=== PATIENT | male | born 1985 | race Caucasian/White ===

== ENCOUNTER 2016-10-13 13:20 | Emergency (ER) | payer OTHER ==
--- NOTE | 2016-10-13 14:47 | ED CLINICAL REPORT ---
Clinical Report - Physicians/Mid Levels [facility] [address] [place] [address] 10/13/2016 13:23 Patient: NINFA AUGUST Time Seen: 13:46; initial patient contact, initial documentation, patient care assumed. Arrived- By private vehicle. Historian- patient and spouse. HISTORY OF PRESENT ILLNESS Chief Complaint: SORE THROAT. This started about 4 - 5 days and is still present. It was abrupt in onset and has been constant. Pain described as severe. The patient has had a sore throat. No mouth sores, nasal discharge or congestion or ear pain. (white spots on throat, daughter sick with ear infection, wants him to have ivf, pt stating his fevers are not going away, but didn't take anything for fever, only taking dayquil and nyquil, spouse reporting pt was having hard time getting out of bed). Similar symptoms previously: None. Recent medical care: Not recently seen/assessed. REVIEW OF SYSTEMS The patient has had fever with chills and sweating and a nonproductive cough. No difficulty breathing, chest pain, diarrhea, abdominal pain or vomiting. He has had a severe, pressure-like global headache. All systems otherwise negative, except as recorded above. PAST HISTORY Negative. SOCIAL HISTORY Former smoker. No alcohol use or drug use. No recent travel. Is a local resident. He lives with spouse. FAMILY HISTORY Negative. ADDITIONAL NOTES The nursing notes have been reviewed with agreement regarding the chief complaint, HPI, ROS, PMH and patient medications and allergies. PHYSICAL EXAM Vital Signs: 10/13/2016 13:35 BP: 107/87. HR: 100. RR: 20. O2 saturation: 99%. Temp: 102.7 F. Have been reviewed as abnormal and appear to be correct. Blood pressure normal. Heart rate normal. Respiratory rate normal. Febrile. Oxygen saturation normal. Appearance: Alert. No acute distress. Head: Normal external inspection. Eyes: Pupils equal, round and reactive to light. Conjunctivae and eyelids normal. ENT: Ears normal. Nose normal. Pharynx abnormal. Severe generalized pharyngeal erythema with right tonsillar swelling and exudate and left tonsillar swelling and exudate (+1 hypertrophy). No pharyngeal vesicles or ulcerations. No right tonsillar abscess, right peritonsillitis, left tonsillar abscess or left peritonsillitis. Lips normal. Gums normal. No trismus present. Uvula midline. Neck: Lymphadenopathy. Normal inspection. Mild right anterior neck and mild left anterior neck lymphadenopathy present. Trachea midline. Thyroid normal. Neck supple. CVS: Normal heart rate and rhythm. Heart sounds normal. Pulses normal. Respiratory: No respiratory distress. Breath sounds normal. Chest nontender. Abdomen: Soft and nontender. No organomegaly. Skin: Normal skin color. No rash. Normal skin turgor. Extremities: Extremities exhibit normal ROM. Extremities nontender. Neuro: Oriented X 3. No motor deficit. No sensory deficit. LABS, X-RAYS, AND EKG Laboratory Tests: CBC w Diff: (KEITH: 10/13/2016 12:45) ( [facility] 10/13/2016 14:09) Final results Test Result Flag Units (Reference) WHITE BLOOD COUNT 12.8 H K/uL (4.5-11.5) RED BLOOD COUNT 5.10 M/uL (4.50-5.90) HEMOGLOBIN 14.6 gm/dL (13.5-17.5) HEMATOCRIT 42.2 % (41.0-53.0) MEAN CELL VOLUME 83 fL (80-100) MEAN CORPUSCULAR HGB 29 pg (26-34) MEAN CORPUSCULAR HGB CONC 35 g/dL (31-37) RED CELL DISTRIBUTION WIDTH 12.9 % (11.6-14.8) PLATELET COUNT 95 L K/uL (150-400) NEUTROPHIL % 84.4 H % (50-75) LYMPH % 7.2 L % (25-40) MONO % 8.4 % (3-14) EOSINOPHIL % 0 % (0-4) BASOPHIL % 0 % (0-2) CMP: (KEITH: 10/13/2016 12:45) ( [facility] 10/13/2016 14:15) Final results Test Result Flag Units (Reference) GLUCOSE 103 mg/dL (70-110) BUN 9 mg/dL (7-18) CREATININE 1.0 mg/dL (0.6-1.3) Estimated GFR >60 mL/min Estimated GFR- >60 mL/min Note: Persistent reduction over 3 months in eGFR<60 mL/min/1.73 m2 defines CKD. Patients with eGFR values>=60 mL/min/1.73 m2 may also have CKD if evidence ofpersistent proteinuria. Additional information may be foundat www.kidney.org. SODIUM 139 mmol/L (136-145) POTASSIUM 3.9 mmol/L (3.5-5.1) CHLORIDE 101 mmol/L (98-107) CARBON DIOXIDE 30 mmol/L (21-32) CALCIUM 9.1 mg/dL (8.5-10.1) TOTAL PROTEIN 7.9 g/dL (6.4-8.2) ALBUMIN 4.0 g/dL (3.3-5.0) BILIRUBIN, TOTAL 0.9 mg/dL (0.0-1.0) ALKALINE PHOSPHATASE 124 H U/L (46-116) AST (SGOT) 35 U/L (15-37) ALT (SGPT) 84 H U/L (12-78) Culture, Strep Screen: (KEITH: 10/13/2016 14:01) ( [facility] 10/13/2016 14:57) Final results Test Result Flag Units (Reference) RAPID STREP SCREEN - THROAT DATE: 10/13/16 NEGATIVE SCREEN: RAPID STREP SCREEN NEGATIVE; CONFIRMATION TO FOLLOW Rapid Influenza Screen: (KEITH: 10/13/2016 14:00) ( [facility] 10/13/2016 14:25) Final results SPECIMEN DESCRIPTION: NARES Test Result Flag Units (Reference) RAPID INFLUENZA SCREEN DATE: 10/13/16 INFLUENZA A: NEGATIVE SCREEN FOR INFLUENZA A INFLUENZA B: NEGATIVE SCREEN FOR INFLUENZA B . PROGRESS AND PROCEDURES Patient and spouse counseled in person regarding the patient's stable condition, test results and diagnosis. 14:44. Differential Diagnosis: Other possible considerations: flu, viral illness, uri, pharyngitis, tonsilitis, mono. Above considerations are based on history, physical exam, reassessment and laboratory data. Differential diagnosis was discussed with patient and patient's spouse. Disposition: Discharged home in good and improved condition (14:47). Condition: good and stable. CLINICAL IMPRESSION 10/13/2016 15:05 BP: 105/46. HR: 87. RR: 18. O2 saturation: 98%. Temp: 101.5 F. Vital Signs: have been reviewed as abnormal and appear to be correct. Blood pressure normal. Heart rate normal. Respiratory rate normal. Febrile. Oxygen saturation normal. Acute streptococcal pharyngitis Acute fever INSTRUCTIONS Alternate Tylenol (Acetaminophen) and Motrin (Ibuprofen) for fever, temperature greater than 101 degrees orally. Take according to label instructions. Do not work today, for two days. Drink plenty of fluids for the next 24 hours until better. Warnings: GENERAL WARNINGS: Return or contact your physician immediately if your condition worsens or changes unexpectedly, if not improving as expected, or if other problems arise. Specifically return if problem worsens. Prescription Medications: Amoxicillin 500 mg tablets: Take 1 orally every 8 hours for 10 days. Dispense thirty (30). No refills. Motrin 600 mg tablets: take 1 tablet orally every 6 hours as needed for pain or fever. Dispense twenty (20). No refill. Follow-up: Follow up with your doctor in about three days even if well. Call for an appointment. Summary of care provided to patient. Understanding of the discharge instructions verbalized by patient. (Electronically signed by Fabiana Rodriguez A.R.N.P. 10/13/2016 15:14)
--- NOTE | 2016-10-13 14:48 | ED NURSING NOTES ---
Clinical Report - Nurses [facility] [address] [place] [address] 10/13/2016 13:23 Patient: NINFA AUGUST TRIAGE Triage time 13:35 Oct 13 2016. Acuity: LEVEL 3. Chief Complaint: FEVER, CHILLS, SWEATS and "NOT FEELING WELL". FLORENCE COMA SCORE: Gurley Coma Scale: 15- eyes open spontaneously (4); best verbal response- oriented x 4 (5); best motor response- obeys commands (6). --13:46 Elli Noriega R.N. 13:35 10/13/16. BP: 107/87. HR: 100. RR: 20. O2 saturation: 99%. Temp: 102.7 F. Pain level now 10/10. --13:46 Elli Noriega R.N. Weight: 68 kg stated. Height/Length: 69 inches Per Patient. BMI: 22.2. --13:43 Elli Noriega R.N. Medications None. --13:44 Elli Noriega R.N. Allergies No Known Drug Allergy. --13:44 Elli Noriega R.N. History Arrived by private vehicle. Historian: patient and family. Accompanied by family. ( States has had high fevers for three days and lifestyle director states he's acting funny and has been falling out of bed. Patient states throat is sore and there is a white lump on back of throat.). He has had a sore throat and a cough. He has had contact with a sick individual. (daughter had ear infection). PAST MEDICAL HX: Immunizations: up-to-date. SOCIAL HX: Former smoker, end date 01/2016. No alcohol use or drug use. No recent travel. He has had contact with a sick child. No infectious disease exposure. SELF HARM ASSESSMENT: A self harm assessment was performed. The patient answered "no" to the question "Have you recently felt down, depressed, or hopeless?" and "Do you have thoughts of harming or killing yourself?". FALL RISK ASSESSMENT: Fall risk assessment completed. No fall risk identified. NUTRITIONAL RISK ASSESSMENT: The nutritional risk assessment revealed no deficiencies. FUNCTIONAL ASSESSMENT: Functional assessment: no impairments noted. LEARNING NEEDS ASSESSMENT: The learning needs assessment revealed no barriers. ABUSE ASSESSMENT: Abuse assessment: (yes) The patient was asked "Do you feel safe in your home?". SKIN INTEGRITY ASSESSMENT: Skin integrity risk assessment completed. No skin integrity risk identified. --13:46 Elli Noriega R.N. ADDITIONAL SURGERIES: no known surgeries. Interventions ID band on patient. --13:46 Elli Noriega R.N. PHYSICAL ASSESSMENT Ambulatory to room. GENERAL / NEURO / PSYCH: Alert. Oriented X 4. Appears in distress. ( Severe headache mid head.). HEENT: Pupils equal, round and reactive to light. Mucous membranes are pink. RESPIRATORY: Respirations not labored. Chest nontender. Breath sounds within normal limits. CVS: Normal sinus rhythm noted. Capillary refill less than 2 seconds. Pulses within normal limits. --13:47 Elli Noriega R.N. NURSING PROGRESS NOTES The initial plan of care for this patient includes an assessment with efforts to address patient positioning, appropriate ambient lighting and comfortable environmental temperature. Pulse oximeter and NIBP monitor placed on patient. Reassurance given. Call light placed in reach. Side rails up x 1. Bed placed in lowest position. Brakes of bed on. --13:47 Elli Noriega R.N. 14:05 10/13/2016 Site #1 started via IV in the left antecubital space with an 20g angiocath; one attempt. Blood drawn: rainbow set. Labeled in the presence of the patient and sent to the lab. Saline lock flushed with 10 mL saline. --14:15 Elli Noriega R.N. 14:05 10/13/2016 Started bag #1 1000 mL IV Fluids IV NS (Saline); at 1000 mL/hr over 1 hour(s) via site #1 via dial-a-flow. Allergies verified and confirmed 5 rights. IV patency established. IV site checked: no pain, redness, or swelling. IV flushed thoroughly pre- and post-medication administration. --14:15 Elli Noriega R.N. 14:54 10/13/2016 Toradol IVP 30 mg given over 2 minute(s) via site #1. Allergies verified and confirmed 5 rights. IV patency established. IV site checked: no pain, redness, or swelling. IV flushed thoroughly pre- and post-medication administration. --15:04 Elli Noriega R.N. 14:54 10/13/2016 IV Fluids IV NS Discontinued: bag #1 infused upon discharge. Total amount infused: 1000 mL. IV patency established. IV site checked: no pain, redness, or swelling. IV flushed thoroughly. --15:04 Elli Noriega R.N. DISPOSITION / DISCHARGE 14:55 10/13/2016 Site #1 removed upon discharge. Catheter intact. Pressure dressing applied. --15:06 Elli Noriega R.N. Departure time: 15:00 Oct 13 2016. Condition at departure: improved. No learning barriers present. Discharge instructions provided and reviewed with the patient and spouse. Reviewed warnings. Reviewed medication(s). Treatments reviewed. Reviewed referrals. Patient verbalized understanding. Written instructions provided in Ethiopian. The patient was discharged home and accompanied by spouse. He left the Emergency Department ambulatory and via private vehicle. Spouse driving. --15:06 Elli Noriega R.N. 15:05 10/13/16. BP: 105/46. HR: 87. RR: 18. O2 saturation: 98%. Temp: 101.5 F. Pain level now 7/10. --15:06 Elli Noriega R.N. Locked/Released at 10/13/2016 19:20 by Elli Noriega R.N.
--- NOTE | 2016-10-13 14:48 | ED ORDER SUMMARY ---
..... Patient: NINFA AUGUST OrderSheet [facility] VisitID: [id number] [place] [address] 30y, M Registration Date/Time: 10/13/2016 ORDER SHEET Weight: 68.0 kg (stated) Allergies: No Known Drug Allergy GENERAL ORDERS: Rapid Influenza Screen (Nasal Pharyngeal) (nares) Urgent (13:54 10/13/2016 HBivens A.R.N.P.) (Ack 13:58 KHoerner) (14:12 LWhalen R.N.) CBC w Diff Urgent (13:54 10/13/2016 HBivens A.R.N.P.) (Ack 13:58 KHoerner) (14:12 LWhalen R.N.) CMP Urgent (13:54 10/13/2016 HBivens A.R.N.P.) (Ack 13:58 KHoerner) (14:12 LWhalen R.N.) Culture, Throat Urgent (13:54 10/13/2016 HBivens A.R.N.P.) (Ack 13:58 KHoerner) (14:12 LWhalen R.N.) Culture, Strep Screen Urgent (14:37 10/13/2016 HBivens A.R.N.P.) (Ack 14:39 KHoerner) (Cancelled: Other14:45 KHoerner) Culture, Strep Screen Urgent (14:46 10/13/2016 KHoerner verbal order read back to HBivens A.R.N.P.) (Ack 14:46 KHoerner) (14:46 KHoerner) MEDICATION ORDERS: IV FLUIDS: IV NS : initial bolus 1000 mL (1000 mL/hr), then none - (NOW) (13:54 10/13/2016 HBivens A.R.N.P.) (14:15 LWhalen R.N.) IV Saline Lock (13:54 10/13/2016 HBivens A.R.N.P.) (Ack 14:15 LWhalen R.N.) Toradol IV 30 mg (NOW) (14:51 10/13/2016 HBivens A.R.N.PJoaquin) (15:04 Shree Rushing) ORDER SHEET NOTES: [Electronically signed by Fabiana RodriguezRJoaquinNJoaquinPJoaquin (15:14 10/13/2016)] [Electronically signed by Elli Noriega R.N. (19:20 10/13/2016)] [Electronically locked/signed by Elli Noriega R.N. (19:20 10/13/2016)]
--- NOTE | 2016-10-13 14:48 | ED ORDER SUMMARY ---
..... Patient: NINFA AUGUST OrderSheet [facility] VisitID: [id number] [place] [address] 30y, M Registration Date/Time: 10/13/2016 ORDER SHEET Weight: 68.0 kg (stated) Allergies: No Known Drug Allergy GENERAL ORDERS: Rapid Influenza Screen (Nasal Pharyngeal) (nares) Urgent (13:54 10/13/2016 HBivens A.R.N.P.) (Ack 13:58 KHoerner) (14:12 LWhalen R.N.) CBC w Diff Urgent (13:54 10/13/2016 HBivens A.R.N.P.) (Ack 13:58 KHoerner) (14:12 LWhalen R.N.) CMP Urgent (13:54 10/13/2016 HBivens A.R.N.P.) (Ack 13:58 KHoerner) (14:12 LWhalen R.N.) Culture, Throat Urgent (13:54 10/13/2016 HBivens A.R.N.P.) (Ack 13:58 KHoerner) (14:12 LWhalen R.N.) Culture, Strep Screen Urgent (14:37 10/13/2016 HBivens A.R.N.P.) (Ack 14:39 KHoerner) (Cancelled: Other14:45 KHoerner) Culture, Strep Screen Urgent (14:46 10/13/2016 KHoerner verbal order read back to HBivens A.R.N.P.) (Ack 14:46 KHoerner) (14:46 KHoerner) MEDICATION ORDERS: IV FLUIDS: IV NS : initial bolus 1000 mL (1000 mL/hr), then none - (NOW) (13:54 10/13/2016 HBivens A.R.N.P.) (14:15 LWhalen R.N.) IV Saline Lock (13:54 10/13/2016 HBivens A.R.N.P.) (Ack 14:15 LWhalen R.N.) Toradol IV 30 mg (NOW) (14:51 10/13/2016 HBivens A.R.N.PJoaquin) (15:04 Shree Rushing) ORDER SHEET NOTES: [Electronically signed by Fabiana RodriguezRJoaquinNJoaquinPJoaquin (15:14 10/13/2016)] [Electronically signed by Elli Noriega R.N. (19:20 10/13/2016)] [Electronically locked/signed by Elli Noriega R.N. (19:20 10/13/2016)]
--- NOTE | 2016-10-13 19:20 | ED MAR SUMMARY ---
..... Medication Administration Record [facility] [address] [place] [address] Patient: NINFA AUGUST Visit ID: [id number] 30y, M Weight: 68.0 kg Height/Length: 69 in BMI: 22.2 ALLERGIES: No Known Drug Allergy Start 14:05 10/13/2016 Elli Noriega R.N., Stop 14:54 10/13/2016 Elli Noriega R.N. Medication Administered: IV NS (SALINE), Dose: IV Fluids over 1 hour(s), Rate: 1000 mL/hr, Dispensed: 1000 mL bag, Site: #1 left AC. Medication Ordered: IV NS : initial bolus 1000 mL (1000 mL/hr), then none - (NOW). Given 14:54 10/13/2016 Elli Noriega R.NJoaquin Medication Administered: TORADOL [IVP], Dose: 30 mg IVP over 2 minute(s), Site: #1 left AC. Medication Ordered: Toradol IV 30 mg (NOW).
--- NOTE | 2016-10-13 19:20 | ED MAR SUMMARY ---
..... Medication Administration Record [facility] [address] [place] [address] Patient: NINFA AUGUST Visit ID: [id number] 30y, M Weight: 68.0 kg Height/Length: 69 in BMI: 22.2 ALLERGIES: No Known Drug Allergy Start 14:05 10/13/2016 Elli Noriega R.N., Stop 14:54 10/13/2016 Elli Noriega R.N. Medication Administered: IV NS (SALINE), Dose: IV Fluids over 1 hour(s), Rate: 1000 mL/hr, Dispensed: 1000 mL bag, Site: #1 left AC. Medication Ordered: IV NS : initial bolus 1000 mL (1000 mL/hr), then none - (NOW). Given 14:54 10/13/2016 Elli Noriega R.NJoaquin Medication Administered: TORADOL [IVP], Dose: 30 mg IVP over 2 minute(s), Site: #1 left AC. Medication Ordered: Toradol IV 30 mg (NOW).
--- NOTE | 2016-10-13 19:20 | ED MED RECONCILIATION SUMMARY ---
Patient: NINFA AUGUST Medication Reconciliation Report [facility] VisitID: [id number] [place] [address] 30y, M Registration Date/Time: 10/13/2016 Weight: 68.0 kg Height/Length: 69 in. BMI: 22.2 ALLERGIES: No Known Drug Allergy The patient's Home Medications are listed below: NONE. The source(s) of the original Home Medication information: Not obtained. The following Medications were given to the patient in the Emergency Department: IV NS IV Fluids bolus 0, then 1000 mL/hr, administered: 10/13/2016 2:05:00 PM Toradol [IVP] IVP 30 mg, administered: 10/13/2016 2:54:00 PM The following Medications were prescribed to the patient: Amoxicillin 500 mg tablets: Take 1 orally every 8 hours for 10 days. Dispense thirty (30). No refills. -- Fabiana Rodriguez A.RJoaquinNJoaquinPJoaquin Motrin 600 mg tablets: take 1 tablet orally every 6 hours as needed for pain or fever. Dispense twenty (20). No refill. -- Fabiana Rodriguez A.R.N.P.
--- NOTE | 2016-10-13 19:20 | ED DISCHARGE INSTRUCTIONS ---
Patient: NINFA AUGUST General Instructions [facility] VisitID: [id number] [place] [address] 30y, M Registration Date/Time: 10/13/2016 10/13/2016 15:05 BP: 105/46. HR: 87. RR: 18. O2 saturation: 98%. Temp: 101.5 F. Vital Signs: have been reviewed as abnormal and appear to be correct. Blood pressure normal. Heart rate normal. Respiratory rate normal. Febrile. Oxygen saturation normal. Acute streptococcal pharyngitis Acute fever INSTRUCTIONS Alternate Tylenol (Acetaminophen) and Motrin (Ibuprofen) for fever, temperature greater than 101 degrees orally. Take according to label instructions. Do not work today, for two days. Drink plenty of fluids for the next 24 hours until better. Warnings: GENERAL WARNINGS: Return or contact your physician immediately if your condition worsens or changes unexpectedly, if not improving as expected, or if other problems arise. Specifically return if problem worsens. Prescription Medications: Amoxicillin 500 mg tablets: Take 1 orally every 8 hours for 10 days. Dispense thirty (30). No refills. Motrin 600 mg tablets: take 1 tablet orally every 6 hours as needed for pain or fever. Dispense twenty (20). No refill. Follow-up: Follow up with your doctor in about three days even if well. Call for an appointment. Summary of care provided to patient. Understanding of the discharge instructions verbalized by patient. ADDITIONAL INFORMATION Febrile Illness, Uncertain Cause (Adult) You have a fever, but the cause is not certain. A fever is a natural reaction of the body to an illness such as infections due to a virus or bacteria. In most cases, the temperature itself is not harmful. It actually helps the body fight infections. A fever does not need to be treated unless you feel very uncomfortable. Sometimes a fever can be an early sign of a more serious infection. Therefore, you should watch for the signs listed below. Home Care: If signs and symptoms are severe, rest at home for the first 2-3 days. When you resume activity, don't let yourself get too tired. Stay away from cigarette smoke (yours and other peoples). You may use acetaminophen (Tylenol) or ibuprofen (Motrin, Advil) to control fever or pain, unless another medicine was prescribed. NOTE: If you have chronic liver or kidney disease or ever had a stomach ulcer or GI bleeding, talk with your doctor before using these medicines. (Aspirin should never be used in anyone under 18 years of age who is ill with a fever. It may cause severe liver damage.) Your appetite may be poor, so a light diet is fine. Avoid dehydration by drinking 6-8 glasses of fluid per day (water, sport drinks such as Gatorade, sodas without caffeine, juices, tea, soup). Extra fluid will help loosen secretions in the nose and lungs. Jdvr-paq-lhjevor products will not shorten the duration of the illness but may be helpful for the following symptoms: cough (Robitussin DM); sore throat (Chloraseptic lozenges or spray); nasal and sinus congestion (Actifed or Sudafed). NOTE: Do not use decongestants if you have high blood pressure. Follow Up with your doctor or as advised if you do not start to improve over the next week. Get Prompt Medical Attention if any of the following occur: Cough with lots of colored sputum (mucus) or blood in your sputum Chest pain, shortness of breath, wheezing or difficulty breathing Severe headache, face, neck, throat or ear pain Feeling drowsy or confused Abdominal pain, repeated vomiting or diarrhea Joint pain or a new rash Burning when urinating Fever of 100.4F (38C) oral or higher, not better with fever medication Feeling weak or dizzy Convulsion Taking Your Child's Temperature If your child feels hot, then check the temperature. Under 3 months : Start with a AXILLARY temperature. If it is above 99.0 F (37.2 C), take a RECTAL temperature. 3 months to 4 years : Measure a RECTAL temperature, or an EAR temperature. Over 4 years : Measure an ORAL temperature. Rectal Temperature is the most accurate. Ear temperature is not as accurate as a rectal or oral temperature, but is more convenient and can be used in the 3 month to 4 year old. Other methods such as plastic strips , forehead devices , and pacifier thermometers are even less accurate and they are not recommended. If you do not know how to use a thermometer, ask your nurse or pharmacist. Oral Method: Normal: 98.6 F (37.0 C). Range of normal: Up to 99.0 F (37.2 C). Recommended Age: Use this method for children older than 4 or 5 years of age, only if cooperative. 1) Wait at least 20 minutes after drinking or eating before taking an oral temperature. 2) Place the tip of a the thermometer under the child's tongue. 3) Have child close lips gently, without biting on the thermometer. 4) Keep under the tongue until the thermometer beeps. 5) Remove thermometer and read the temperature in the display. 6) Clean the thermometer with alcohol, or soap and water after each use. Axillary Method (UNDER THE ARM): Normal: 97.6 F (36.6 C) Range of Normal: Up to 98.6 F (37.0 C) Recommended Age: Use this method for children under 4 years of age or any uncooperative child. 1) Make sure armpit is dry and the child does not have clothing between arm and chest. 2) Place the tip of the thermometer high up in the armpit. 4) Hold the child's arm snug against their body with the thermometer in place until it beeps. 5) Remove thermometer and read the temperature in the display. 6) Clean the thermometer with alcohol, or soap and water after each use. Rectal Method: Normal: 99.6 F (37.6 C). Range of Normal: Up to 100.4 F (38.0 C). Recommended age: Use this method for children under 4 years of age or any uncooperative child. 1) Lubricate the tip of a rectal thermometer with a lubricant such as Vaseline jelly or K-Y jelly. 2) Lay your child face down across your lap, or on his/her side with knees bent toward the chest. Spread buttocks so that the anus can be easily seen. 3) Hold the thermometer between your thumb and index finger with the edge of your hand resting on the buttocks. Slowly and gently insert thermometer into the anus about one inch. The tip should slide in easily. Do not force it since they may cause injury. 4) Do not let go of the thermometer! Hold it carefully in place until it beeps. 5) Remove thermometer and read the temperature in the display. 6) Clean the thermometer with alcohol, or soap and water after each use. When To Seek Help Call your doctor or return here if you have an infant younger than 3 months with a temperature of 100.4 F (38.0 C) or an older child with a fever higher than 104.0 F (40.0 C). Pharyngitis: Strep [Presumed] Your illness has the signs of a strep throat infection. Strep throat is a contagious illness. It is spread by coughing, kissing or by touching others after touching your mouth or nose. Symptoms include throat pain worse with swallowing, aching all over, headache and fever. You will be treated with an antibiotic, which should make you start to feel better within 1-2 days. Home Care: Rest at home and drink plenty of fluids to avoid dehydration. No school or work for the first two days on antibiotics. You will not be contagious after this time, and if you are feeling better, you can return to school or work. Take your antibiotics for a full 10 days, even if you feel better after the first few days of treatment. This is very important to prevent complications from the strep infection (such as heart or kidney disease). Children: Use acetaminophen (Tylenol) for fever, fussiness or discomfort. In infants over six months of age, you may use ibuprofen (Children's Motrin) instead of Tylenol. [NOTE: If your child has chronic liver or kidney disease or ever had a stomach ulcer or GI bleeding, talk with your doctor before using these medicines.] (Aspirin should never be used in anyone under 18 years of age who is ill with a fever. It may cause severe liver damage.) Adults: You may use acetaminophen (Tylenol) or ibuprofen (Motrin, Advil) to control pain or fever, unless another medicine was prescribed for this. [NOTE: If you have chronic liver or kidney disease or ever had a stomach ulcer or GI bleeding, talk with your doctor before using these medicines.] Throat lozenges or sprays (Chloraseptic and others) will reduce pain. Gargling with warm salt water will also reduce throat pain. Dissolve 1/2 teaspoon of salt in 1 glass of warm water. This is especially useful just before meals. Follow Up with your doctor or as directed by our staff if you are not improving over the next week. Get Prompt Medical Attention if any of the following occur: Fever over 100.5F (38.0C) oral, or over 101.5F (38.6C) rectal for more than three days New or worsening ear pain, sinus pain or headache Painful lumps in the back of your neck Unable to swallow liquids or open your mouth wide due to throat pain Trouble breathing or noisy breathing Muffled voice New rash Fever Control (Adult) A fever is a natural reaction of the body to an illness. In most cases, the temperature itself is not harmful. It actually helps the body fight infections. A fever does not need to be treated unless you feel very uncomfortable. Home Care If you feel warm, check your temperature. If you feel very uncomfortable and your temperature is at or higher than 100.4F (38C) oral, you may take acetaminophen (Tylenol) every 4 to 6 hours. If you cant take or keep down oral medicine, ask your pharmacist for Tylenol suppositories, which you can get without a prescription. If the fever does not respond to acetaminophen within 1 hour, take ibuprofen (Advil or Motrin). If this works, keep taking the ibuprofen every 6 to 8 hours. Note: If you have chronic liver or kidney disease or ever had a stomach ulcer or GI bleeding, talk with your doctor before using these medications. If either medication alone does not keep the fever down, you may alternate the two medicines every 3 to 4 hours, only if your healthcare provider has instructed you to do so. For example, take Motrin then wait 3 hours, take Tylenol then wait 3 hours, take Motrin, and so on. Follow your healthcare providers instructions exactly. Clothing: Keep clothing light because excess body heat is lost through the skin. The fever will go up if you wear extra layers or wrap in blankets. Fluids: Fever causes the body to lose water through evaporation. Drink plenty of fluids such as water, juice, clear sodas, janel kamilah, or lemonade. Do not use aspirin in anyone under 18 years of age who is ill with a fever. It can cause severe liver damage. Follow Up with your doctor or as advised by our staff if you do not get better after 48 hours. Get Prompt Medical Attention if any of the following occur: Fever does not get better after taking fever medication Fast or difficult breathing Earache, sinus pain, stiff or painful neck, headache, repeated diarrhea or vomiting You feel unusually irritable, drowsy, or confused A rash appears You feel weak or dizzy, or that you might faint Amoxicillin Trihydrate Oral tablet What is this medicine? AMOXICILLIN (a mox i LORENA in) is a penicillin antibiotic. It is used to treat certain kinds of bacterial infections. It will not work for colds, flu, or other viral infections. How should I use this medicine? Take this medicine by mouth with a glass of water. Follow the directions on your prescription label. You may take this medicine with food or on an empty stomach. Take your medicine at regular intervals. Do not take your medicine more often than directed. Take all of your medicine as directed even if you think your are better. Do not skip doses or stop your medicine early. Talk to your swimming pool service technician regarding the use of this medicine in children. While this drug may be prescribed for selected conditions, precautions do apply. What side effects may I notice from receiving this medicine? Side effects that you should report to your doctor or health rn complex care as soon as possible: allergic reactions like skin rash, itching or hives, swelling of the face, lips, or tongue breathing problems dark urine redness, blistering, peeling or loosening of the skin, including inside the mouth seizures severe or watery diarrhea trouble passing urine or change in the amount of urine unusual bleeding or bruising unusually weak or tired yellowing of the eyes or skin Side effects that usually do not require medical attention (report to your doctor or health rn complex care if they continue or are bothersome): dizziness headache stomach upset trouble sleeping What may interact with this medicine? amiloride control pills chloramphenicol macrolides probenecid sulfonamides tetracyclines What if I miss a dose? If you miss a dose, take it as soon as you can. If it is almost time for your next dose, take only that dose. Do not take double or extra doses. Where should I keep my medicine? Keep out of the reach of children. Store between 68 and 77 degrees F (20 and 25 degrees C). Keep bottle closed tightly. Throw away any unused medicine after the expiration date. What should I tell my health care provider before I take this medicine? They need to know if you have any of these conditions: asthma kidney disease an unusual or allergic reaction to amoxicillin, other penicillins, cephalosporin antibiotics, other medicines, foods, dyes, or preservatives or trying to get breast-feeding What should I watch for while using this medicine? Tell your doctor or health rn complex care if your symptoms do not improve in 2 or 3 days. Take all of the doses of your medicine as directed. Do not skip doses or stop your medicine early. If you are diabetic, you may get a false positive result for sugar in your urine with certain brands of urine tests. Check with your doctor. Do not treat diarrhea with [id number]-oxgeddj products. Contact your doctor if you have diarrhea that lasts more than 2 days or if the diarrhea is severe and watery. Ibuprofen Oral tablet What is this medicine? IBUPROFEN (eye BYOO proe fen) is a non-steroidal anti-inflammatory drug (NSAID). It is used for dental pain, fever, headaches or migraines, osteoarthritis, rheumatoid arthritis, or painful monthly periods. It can also relieve minor aches and pains caused by a cold, flu, or sore throat. How should I use this medicine? Take this medicine by mouth with a glass of water. Follow the directions on the prescription label. Take this medicine with food if your stomach gets upset. Try to not lie down for at least 10 minutes after you take the medicine. Take your medicine at regular intervals. Do not take your medicine more often than directed. A special MedGuide will be given to you by the pharmacist with each prescription and refill. Be sure to read this information carefully each time. Talk to your swimming pool service technician regarding the use of this medicine in children. Special care may be needed. What side effects may I notice from receiving this medicine? Side effects that you should report to your doctor or health rn complex care as soon as possible: allergic reactions like skin rash, itching or hives, swelling of the face, lips, or tongue black or bloody stools, blood in the urine or in vomit breathing problems changes in vision chest pain general ill feeling or flu-like symptoms nausea or vomiting redness, blistering, peeling or loosening of the skin, including inside the mouth slurred speech or weakness on one side of the body stomach pain unexplained weight gain or swelling unusually weak or tired yellowing of eyes or skin Side effects that usually do not require medical attention (report to your doctor or health rn complex care if they continue or are bothersome): constipation or diarrhea dizziness gas or heartburn stomach upset What may interact with this medicine? Do not take this medicine with any of the following medications: cidofovir ketorolac methotrexate pemetrexed This medicine may also interact with the following medications: alcohol aspirin diuretics lithium other drugs for inflammation like prednisone warfarin What if I miss a dose? If you miss a dose, take it as soon as you can. If it is almost time for your next dose, take only that dose. Do not take double or extra doses. Where should I keep my medicine? Keep out of the reach of children. Store at room temperature between 15 and 30 degrees C (59 and 86 degrees F). Keep container tightly closed. Throw away any unused medicine after the expiration date. What should I tell my health care provider before I take this medicine? They need to know if you have any of these conditions: asthma cigarette smoker drink more than 3 alcohol containing drinks a day heart disease or circulation problems such as heart failure or leg edema (fluid retention) high blood pressure kidney disease liver disease stomach bleeding or ulcers an unusual or allergic reaction to ibuprofen, aspirin, other NSAIDS, other medicines, foods, dyes, or preservatives or trying to get breast-feeding What should I watch for while using this medicine? Tell your doctor or healthcare professional if your symptoms do not start to get better or if they get worse. This medicine does not prevent heart attack or stroke. In fact, this medicine may increase the chance of a heart attack or stroke. The chance may increase with longer use of this medicine and in people who have heart disease. If you take aspirin to prevent heart attack or stroke, talk with your doctor or health rn complex care. Do not take other medicines that contain aspirin, ibuprofen, or naproxen with this medicine. Side effects such as stomach upset, nausea, or ulcers may be more likely to occur. Many medicines available without a prescription should not be taken with this medicine. This medicine can cause ulcers and bleeding in the stomach and intestines at any time during treatment. Ulcers and bleeding can happen without warning symptoms and can cause . To reduce your risk, do not smoke cigarettes or drink alcohol while you are taking this medicine. You may get drowsy or dizzy. Do not drive, use machinery, or do anything that needs mental alertness until you know how this medicine affects you. Do not stand or sit up quickly, especially if you are an older patient. This reduces the risk of dizzy or fainting spells. This medicine can cause you to bleed more easily. Try to avoid damage to your teeth and gums when you brush or floss your teeth. You have been given the following additional information: Febrile Illness, Uncertain Cause (Adult) Thermometer Use Pharyngitis, Strep (Presumed) Fever Control (Adult) Amoxicillin Trihydrate Oral tablet Ibuprofen Oral tablet Do not work today, for two days. (Electronically signed by Fabiana Rodriguez A.R.N.P. 10/13/2016 15:14)
--- NOTE | 2016-10-13 19:20 | ED MED RECONCILIATION SUMMARY ---
Patient: NINFA AUGUST Medication Reconciliation Report [facility] VisitID: [id number] [place] [address] 30y, M Registration Date/Time: 10/13/2016 Weight: 68.0 kg Height/Length: 69 in. BMI: 22.2 ALLERGIES: No Known Drug Allergy The patient's Home Medications are listed below: NONE. The source(s) of the original Home Medication information: Not obtained. The following Medications were given to the patient in the Emergency Department: IV NS IV Fluids bolus 0, then 1000 mL/hr, administered: 10/13/2016 2:05:00 PM Toradol [IVP] IVP 30 mg, administered: 10/13/2016 2:54:00 PM The following Medications were prescribed to the patient: Amoxicillin 500 mg tablets: Take 1 orally every 8 hours for 10 days. Dispense thirty (30). No refills. -- Fabiana Rodriguez A.RJoaquinNJoaquinPJoaquin Motrin 600 mg tablets: take 1 tablet orally every 6 hours as needed for pain or fever. Dispense twenty (20). No refill. -- Fabiana Rodriguez A.R.N.P.
== END 2016-10-13 15:00 | disposition home or self-care (01) ==
LOC: ED SRH 13:20
DX: J02.0 Streptococcal pharyngitis (principal); R50.9 Fever, unspecified; Z87.891 Personal history of nicotine dependence
CPT/HCPCS: 90100; 90126; 90154; 90159; 90627; 91400; 95059

== ENCOUNTER 2016-10-14 20:50 | Emergency (ER) | payer OTHER ==
--- NOTE | 2016-10-14 22:45 | DIAGNOSTIC IMAGING REPORT ---
PROCEDURE: CT HEAD WITHOUT CONTRAST INDICATION: HEADACHE TECHNIQUE: Axial CT images were acquired through the head. Coronal and sagittal reformations were created. COMPARISON: None. FINDINGS: No intracranial hemorrhage or extraaxial fluid collections. Ventricles are normal in size, shape and position. There is no mass, mass effect or midline shift. The john-white matter differentiation is normal. There is no edema. The calvarium is intact. Minor mucosal thickening in the right sphenoid sinus and left maxillary sinus. Other sinuses and mastoids are normally aerated. The extracranial soft tissues and orbits are normal. IMPRESSION: 1. No CT evidence of acute intracranial process. 2. Findings discussed with Fabiana Rodriguez at [address] scans at this facility use dose modulation, iterative reconstruction, and/or weight-based dosing when appropriate to reduce radiation dose to as low as reasonably achievable.
--- NOTE | 2016-10-14 23:02 | ED CLINICAL REPORT ---
Clinical Report - Physicians/Mid Levels [facility] [address] [place] [address] 10/14/2016 20:51 Patient: NINFA AUGUST Time Seen: 21:43; initial patient contact, initial documentation, patient care assumed. Arrived- By private vehicle. Historian- patient and spouse. RETURN VISIT: recently seen in this ED by me. Seen now for the same problem as before. HISTORY OF PRESENT ILLNESS Chief Complaint: SORE THROAT. This started about 5 - 6 days ago and is still present. Pain described as severe. The patient has had a sore throat. No mouth sores, nasal discharge or congestion, ear pain or toothache. (pt states the headache won't go away, fever comes and goes, and he doesn't feel any better, taking all the meds as directed). Similar symptoms previously: None. Recent medical care: The patient was seen recently at this facility in the emergency department. ( txed here yesterday by me). REVIEW OF SYSTEMS The patient has had fever. No cough, difficulty breathing, chest pain, diarrhea or abdominal pain. No vomiting. He has had a severe, sharp, throbbing global headache. All systems otherwise negative, except as recorded above. PAST HISTORY Negative. SOCIAL HISTORY Former smoker. No alcohol use or drug use. No recent travel. Is a local resident. He lives with spouse. FAMILY HISTORY Negative. ADDITIONAL NOTES The nursing notes have been reviewed with agreement regarding the chief complaint, HPI, ROS, PMH and patient medications and allergies. PHYSICAL EXAM Vital Signs: 10/14/2016 21:24 BP: 115/71. HR: 87. RR: 16. O2 saturation: 99%. Temp: 102.3 F. Pain level now: 710. Have been reviewed as abnormal and appear to be correct. Blood pressure normal. Heart rate normal. Respiratory rate normal. Febrile. Oxygen saturation normal. Appearance: Alert. No acute distress. Head: Normal external inspection. Eyes: Pupils equal, round and reactive to light. Conjunctivae and eyelids normal. ENT: Ears normal. Nose normal. Pharynx abnormal. Moderate generalized pharyngeal erythema (throat looks better from yesterday's exam). No pharyngeal vesicles or ulcerations. No right tonsillar exudate, right tonsillar abscess, right tonsillar swelling, right peritonsillitis, left tonsillar exudate, left tonsillar abscess, left tonsillar swelling or left peritonsillitis. Lips normal. Gums normal. No trismus present. Uvula midline. Neck: Lymphadenopathy. Normal inspection. Mild right anterior neck and mild left anterior neck lymphadenopathy present. Trachea midline. Thyroid normal. Neck supple. Respiratory: No respiratory distress. Skin: Normal skin color. No rash. Normal skin turgor. Extremities: Extremities exhibit normal ROM. Extremities nontender. Neuro: Oriented X 3. No motor deficit. No sensory deficit. LABS, X-RAYS, AND EKG CT Head: Normal study. No acute disease. (IMPRESSION: 1. No CT evidence of acute intracranial process. 2. Findings discussed with Fabiana Rodriguez at [address] scans at this facility use dose modulation, iterative reconstruction, and/or weight-based dosing when appropriate to reduce radiation dose to as low as reasonably achievable. Electronically Final signed by:Risa Martel MD 10/14/2016 10:45:01 PM). The study was interpreted by the radiologist and discussed with the radiologist. Interpretation time: 22:45. Laboratory Tests: Monoscreen: (KEITH: 10/14/2016 22:30) ( [facility] Final results Test Result Flag Units (Reference) MONOSCREEN NEGATIVE (NEGATIVE) CBC w Diff: (KEITH: 10/14/2016 22:30) ( MsgRcvd 10/14/2016 22:57) Final results Test Result Flag Units (Reference) WHITE BLOOD COUNT 9.7 K/uL (4.5-11.5) RED BLOOD COUNT 4.49 L M/uL (4.50-5.90) HEMOGLOBIN 12.7 L gm/dL (13.5-17.5) HEMATOCRIT 37.6 L % (41.0-53.0) MEAN CELL VOLUME 84 fL (80-100) MEAN CORPUSCULAR HGB 28 pg (26-34) MEAN CORPUSCULAR HGB CONC 34 g/dL (31-37) RED CELL DISTRIBUTION WIDTH 12.8 % (11.6-14.8) PLATELET COUNT 103 L K/uL (150-400) NEUTROPHIL % 72.5 % (50-75) LYMPH % 13.7 L % (25-40) MONO % 13.3 % (3-14) EOSINOPHIL % 0.2 % (0-4) BASOPHIL % 0.3 % (0-2) [id number]: (KEITH: 10/14/2016 22:30) ( MsgRcvd 10/14/2016 23:26) Final results Test Result Flag Units (Reference) PROCALCITONIN <0.5 ng/mL (0-0.5) PCT Concentration: Interpretation : Risk/option for action PCT <=0.5 ng/mL : Systemic : Low risk forinfection(sepsis): progression to severeis not likely. : systemic infection.Local bacterial : CAUTION-PCT levelsinfection is : below 0.5 ng/mL do notpossible. : exclude an infection,because localizedinfections (withoutsystemic signs) may beassociated with suchlow levels. If PCT ismeasured very earlyafter a bacterialchallenge (usually <6hours), these valuesmay still be low. Inthis case PCT shouldbe re-assessed 6-24hours later. PCT >0.5 and : Systemic infection: Moderate risk for<= 2 ng/mL : (sepsis) is : progression to severepossible, but : systemic infection.other conditions : The patient should beare known to : closely monitoredelevate PCT. : both clinically andby re-assessing PCTwithin 6-24 hours. PCT > 2 ng/mL : Systemic infection: High risk for(sepsis) is likely: progression to severeunless other : systemic infection.causes are known. : PCT >= 10 ng/mL : Important systemic: High likelihood ofinflammatory : severe sepsis orresponse, almost : septic shock.exclusively due to:severe bacterial :sepsis or septic :shock. : CMP: (KEITH: 10/14/2016 22:30) ( MsgRcvd 10/14/2016 23:01) Final results Test Result Flag Units (Reference) GLUCOSE 121 H mg/dL (70-110) BUN 6 L mg/dL (7-18) CREATININE 0.8 mg/dL (0.6-1.3) Estimated GFR >60 mL/min Estimated GFR- >60 mL/min Note: Persistent reduction over 3 months in eGFR<60 mL/min/1.73 m2 defines CKD. Patients with eGFR values>=60 mL/min/1.73 m2 may also have CKD if evidence ofpersistent proteinuria. Additional information may be foundat [email or web address].org. SODIUM 140 mmol/L (136-145) POTASSIUM 3.6 mmol/L (3.5-5.1) CHLORIDE 104 mmol/L (98-107) CARBON DIOXIDE 30 mmol/L (21-32) CALCIUM 8.6 mg/dL (8.5-10.1) TOTAL PROTEIN 7.3 g/dL (6.4-8.2) ALBUMIN 3.7 g/dL (3.3-5.0) BILIRUBIN, TOTAL 0.7 mg/dL (0.0-1.0) ALKALINE PHOSPHATASE 139 H U/L (46-116) AST (SGOT) 74 H U/L (15-37) ALT (SGPT) 128 H U/L (12-78) . PROGRESS AND PROCEDURES Course of Care: 22:18 10/14/16. er record from yesterday reviewed wbc 12.8. He complains of headache (- improving). Patient and spouse counseled in person regarding the patient's stable condition, test results and diagnosis. 2250. Differential Diagnosis: I considered migraine, cluster headache, subarachnoid hemorrhage, intracranial bleed, vascular malformation, cerebral aneurysm, vascular dissection, vasculitis, temporal arteritis, bacterial meningitis, viral meningitis, encephalitis, brain abscess, sinusitis, influenza, viral syndrome and analgesic abuse as a possible cause of headache in this patient. This is a partial list of diagnoses considered. (pharyngitis, mono, flu, viral illness). Above considerations are based on history, physical exam, laboratory data and other information. Differential diagnosis was discussed with patient and patient's spouse. Disposition: Discharged home in good and improved condition (23:02). Condition: good and stable. CLINICAL IMPRESSION Acute streptococcal pharyngitis Acute fever Episodic, poorly controlled headache. INSTRUCTIONS Alternate Tylenol (Acetaminophen) and Motrin (Ibuprofen) for fever, temperature greater than 101 degrees. Take according to label instructions. Drink plenty of fluids. (continue with current prescriptions as directed and discussed). Warnings: GENERAL WARNINGS: Return or contact your physician immediately if your condition worsens or changes unexpectedly, if not improving as expected, or if other problems arise. Specifically return if problem worsens. Follow-up: Follow up with your doctor in about three days even if well. Call for an appointment. Summary of care provided to patient and family. Understanding of the discharge instructions verbalized by patient. (Electronically signed by Fabiana Rodriguez A.R.N.P. 10/15/2016 13:20)
--- NOTE | 2016-10-14 23:03 | ED ORDER SUMMARY ---
..... Patient: NINFA AUGUST OrderSheet [facility] VisitID: [id number] [place] [address] 30y, M Registration Date/Time: 10/14/2016 ORDER SHEET Weight: 68.0 kg (stated) Allergies: No Known Drug Allergy GENERAL ORDERS: CT Head wo Cont Urgent (21:48 10/14/2016 HBivens A.R.N.P.) (Ack 21:49 IJurca ER Tech1) (22:21 MCampbell) CBC w Diff Urgent (21:48 10/14/2016 HBivens A.R.N.P.) (Ack 21:49 IJurca ER Tech1) (22:45 RCollier R.N.) CMP Urgent (21:48 10/14/2016 HBivens A.R.N.P.) (Ack 21:49 IJurca ER Tech1) (22:45 RCollier R.N.) Lactate, Serum Urgent (22:20 10/14/2016 HBivens A.R.N.P.) (Ack 22:29 IJurca ER Tech1) (Cancelled: Physician Order23:36 DDavis R.N.) PCT (Procalcitonin) Urgent (22:20 10/14/2016 HBivens A.R.N.P.) (Ack 22:29 IJurca ER Tech1) (22:45 RCollier R.N.) Monoscreen Urgent (23:03 10/14/2016 HBivens A.R.N.P.) (Ack 23:15 IJurca ER Tech1) (23:16 IJurca ER Tech1) MEDICATION ORDERS: Tylenol PO 650 mg (NOW) (21:35 10/14/2016 DDavis R.N. per protocol) (Ack 21:36 DDavis R.N.) (21:39 DDavis R.N.) IV FLUIDS: IV NS : initial bolus 1000 mL (1000 mL/hr), then none - (NOW) (21:47 10/14/2016 HBivens A.R.N.P.) (Ack 21:51 DDavis R.N.) (22:43 RCollier R.N.) Toradol IV 30 mg (NOW) (21:47 10/14/2016 HBivens A.R.N.P.) (Ack 21:51 DDavis R.N.) (22:44 RCollier R.N.) Reglan IV 10 mg (NOW) (21:47 10/14/2016 HBivens A.R.N.P.) (Ack 21:51 DDavis R.N.) (22:45 RCollier R.N.) Benadryl IV 25 mg (NOW) (21:47 10/14/2016 HBivens A.R.N.P.) (Ack 21:51 DDavis R.N.) (22:44 RCollier R.N.) IV Saline Lock (21:48 10/14/2016 HBivens A.R.N.P.) (Ack 21:51 DDavis R.N.) (23:35 DDavis R.N.) ORDER SHEET NOTES: [Electronically signed by Gilbert cMgraw R.N. (23:39 10/14/2016)] [Electronically signed by Fabiana RodriguezR.N.PJoaquin (13:20 10/15/2016)] [Electronically locked/signed by Gilbert Mcgraw R.N. (23:39 10/14/2016)]
--- NOTE | 2016-10-14 23:03 | ED NURSING NOTES ---
Clinical Report - Nurses [facility] [address] [place] [address] 10/14/2016 20:51 Patient: NINFA AUGUST TRIAGE Triage time 21:24. Acuity: LEVEL 3. Chief Complaint: SORE THROAT. 21:30. --21:30 Emily Buck R.N. 21:24 10/14/16. BP: 115/71 taken on the left arm, via an automated monitor, while lying. HR: 87 (regular, normal rate and strong). RR: 16 (regular, unlabored and normal). O2 saturation: 99%. Temp: 102.3 F (oral). Pain level now: 01/18. --21:30 Emily Buck R.N. Weight: 68 kg stated. Height/Length: 69 inches Per Patient. BMI: 22.2. --21:29 Emily Buck R.N. Medications Ibuprofen Oral (Tablet 600 mg) 1 tablet, PRN, fever, last dose 1930. --21:27 Emily Buck R.N. Amoxicillin Oral (Capsule 500 mg) 1 capsule, q8hrs, last dose 1400. --21:28 Emily Buck R.N. Allergies No Known Drug Allergy. --21:26 Emily Buck R.N. History Arrived by private vehicle. Historian: patient. Accompanied by friend. ( pounding headache, fever, nausea,). PAST MEDICAL HX: Immunizations: up-to-date. SOCIAL HX: Never smoker. No alcohol use or drug use. FALL RISK ASSESSMENT: Fall risk assessment completed. No fall risk identified. NUTRITIONAL RISK ASSESSMENT: The nutritional risk assessment revealed no deficiencies. FUNCTIONAL ASSESSMENT: Functional assessment: no impairments noted. LEARNING NEEDS ASSESSMENT: The learning needs assessment revealed no barriers. SKIN INTEGRITY ASSESSMENT: Skin integrity risk assessment completed. No skin integrity risk identified. --21:30 Emily Buck R.N. Interventions ID band on patient. --21:30 Emily Buck R.N. PHYSICAL ASSESSMENT ( Pt states having a generalized headache and fever "for a week" and having decreased appetite.). GENERAL / NEURO / PSYCH: Alert. Oriented X 4. HEENT: Mucous membranes are pink. RESPIRATORY: Respirations not labored. SKIN: Skin is warm and dry. --21:44 Gilbert Mcgraw R.N. Ambulatory to room. --21:45 Gilbert Mcgraw R.N. GENERAL / NEURO / PSYCH: Fátima Coma Scale: 15- eyes open spontaneously (4); best verbal response- oriented x 4 (5); best motor response- obeys commands (6). --21:45 Gilbert Mcgraw R.N. NURSING PROGRESS NOTES 21:39 10/14/2016 Tylenol (Acetaminophen) PO Tablets 650 mg given. Allergies verified and confirmed 5 rights. --21:39 Gilbert Mcgraw R.N. ( Patient resting in bed.). --21:43 Gilbert Mcgraw R.N. Two patient identifiers checked. Call light placed in reach. Side rails up x 1. Bed placed in lowest position. Brakes of bed on. Patient ready for evaluation- chart flagged. Patient waiting for evaluation. --21:43 Gilbert Mcgraw R.N. ( pt refused IV untill after he gets something to eat, states he will pass out if he does not eat first. Provider consulted and sandwich and crackers given to pt. Pt instructed to push call light when he is ready for IV start. Pt verbalizes understanding). --22:25 Mackenzie Abarca R.N. 22:30 10/14/2016 Site #1 started via IV in the left antecubital space with an 20g angiocath, with aseptic technique and good blood return; one attempt. Blood drawn: rainbow set. Labeled in the presence of the patient and sent to the lab. Saline lock flushed with 10 mL saline. --22:42 Mackenzie Abarca R.N. 22:31 10/14/2016 Started bag #1 1000 mL IV Fluids IV NS (Saline); at 1000 mL/hr over 1 hour(s) via site #1. Allergies verified and confirmed 5 rights. IV patency established. IV site checked: no pain, redness, or swelling. IV flushed thoroughly pre- and post-medication administration. --22:43 Mackenzie Abarca R.N. 22:34 10/14/2016 Toradol IVP 30 mg given over 1 minute(s) via site #1. Allergies verified and confirmed 5 rights. IV patency established. IV site checked: no pain, redness, or swelling. IV flushed thoroughly pre- and post-medication administration. IVP given by RN. --22:44 Mackenzie Abarca R.N. 22:35 10/14/2016 Benadryl (DiphenhydrAMINE HCl) IVP 25 mg given over 1 minute(s) via site #1. Allergies verified, confirmed 5 rights and sedative warning given to the patient. IV patency established. IV site checked: no pain, redness, or swelling. IV flushed thoroughly pre- and post-medication administration. IVP given by RN. --22:44 Mackenzie Abarca R.N. 22:37 10/14/2016 Reglan (Metoclopramide HCl) IVP 10 mg given over 2 minute(s) via site #1. Allergies verified and confirmed 5 rights. IV patency established. IV site checked: no pain, redness, or swelling. IV flushed thoroughly pre- and post-medication administration. IVP given by RN. --22:45 Mackenzie Abarca R.N. Patient transported to [place] by stretcher with tech. ([id number]). --22:45 Mackenzie Abarca R.N. Patient returned from CT by stretcher with tech. ([id number]). --22:45 Mackenzie Abarca R.N. 23:31 10/14/2016 IV Fluids IV NS Discontinued: bag #1 infused. Total amount infused: 1000 mL. IV patency established. IV site checked: no pain, redness, or swelling. IV flushed thoroughly. --23:36 Gilbert Mcgraw R.N. 23:35 10/14/2016 IV Saline Lock Drip IV Discontinued: bag #1 upon discharge. IV patency established IV site checked: no pain, redness, or swelling IV flushed thoroughly. --23:35 Gilbert Mcgraw R.N. DISPOSITION / DISCHARGE Departure time: 23:37. Condition at departure: improved and stable. No learning barriers present. Discharge instructions provided and reviewed with rad technologist and the patient. Reviewed warnings. Treatments reviewed. Reviewed referrals. Patient and rad technologist verbalized understanding. Written instructions provided in Uzbek. The patient was discharged home and accompanied by rad technologist. He left the Emergency Department ambulatory and via private vehicle. Senior Planning Analyst driving. ( Patient states "my headache is better, it's gone."). --23:38 Gilbert Mcgraw R.N. 23:36 10/14/16. BP: 114/60. HR: 79. RR: 18. O2 saturation: 95% on room air. Temp: 98.6 F (oral). Pain level now: 0/10. --23:38 Gilbert Mcgraw R.N. Locked/Released at 10/14/2016 23:39 by Gilbert Mcgraw R.N.
--- NOTE | 2016-10-14 23:03 | ED ORDER SUMMARY ---
..... Patient: NINFA AUGUST OrderSheet [facility] VisitID: [id number] [place] [address] 30y, M Registration Date/Time: 10/14/2016 ORDER SHEET Weight: 68.0 kg (stated) Allergies: No Known Drug Allergy GENERAL ORDERS: CT Head wo Cont Urgent (21:48 10/14/2016 HBivens A.R.N.P.) (Ack 21:49 IJurca ER Tech1) (22:21 MCampbell) CBC w Diff Urgent (21:48 10/14/2016 HBivens A.R.N.P.) (Ack 21:49 IJurca ER Tech1) (22:45 RCollier R.N.) CMP Urgent (21:48 10/14/2016 HBivens A.R.N.P.) (Ack 21:49 IJurca ER Tech1) (22:45 RCollier R.N.) Lactate, Serum Urgent (22:20 10/14/2016 HBivens A.R.N.P.) (Ack 22:29 IJurca ER Tech1) (Cancelled: Physician Order23:36 DDavis R.N.) PCT (Procalcitonin) Urgent (22:20 10/14/2016 HBivens A.R.N.P.) (Ack 22:29 IJurca ER Tech1) (22:45 RCollier R.N.) Monoscreen Urgent (23:03 10/14/2016 HBivens A.R.N.P.) (Ack 23:15 IJurca ER Tech1) (23:16 IJurca ER Tech1) MEDICATION ORDERS: Tylenol PO 650 mg (NOW) (21:35 10/14/2016 DDavis R.N. per protocol) (Ack 21:36 DDavis R.N.) (21:39 DDavis R.N.) IV FLUIDS: IV NS : initial bolus 1000 mL (1000 mL/hr), then none - (NOW) (21:47 10/14/2016 HBivens A.R.N.P.) (Ack 21:51 DDavis R.N.) (22:43 RCollier R.N.) Toradol IV 30 mg (NOW) (21:47 10/14/2016 HBivens A.R.N.P.) (Ack 21:51 DDavis R.N.) (22:44 RCollier R.N.) Reglan IV 10 mg (NOW) (21:47 10/14/2016 HBivens A.R.N.P.) (Ack 21:51 DDavis R.N.) (22:45 RCollier R.N.) Benadryl IV 25 mg (NOW) (21:47 10/14/2016 HBivens A.R.N.P.) (Ack 21:51 DDavis R.N.) (22:44 RCollier R.N.) IV Saline Lock (21:48 10/14/2016 HBivens A.R.N.P.) (Ack 21:51 DDavis R.N.) (23:35 DDavis R.N.) ORDER SHEET NOTES: [Electronically signed by Gilbert Mcgraw R.N. (23:39 10/14/2016)] [Electronically signed by Fabiana RodriguezR.N.PJoaquin (13:20 10/15/2016)] [Electronically locked/signed by Gilbert Mcgraw R.N. (23:39 10/14/2016)]
--- NOTE | 2016-10-14 23:03 | ED NURSING NOTES ---
Clinical Report - Nurses [facility] [address] [place] [address] 10/14/2016 20:51 Patient: NINFA AUGUST TRIAGE Triage time 21:24. Acuity: LEVEL 3. Chief Complaint: SORE THROAT. 21:30. --21:30 Emily Buck R.N. 21:24 10/14/16. BP: 115/71 taken on the left arm, via an automated monitor, while lying. HR: 87 (regular, normal rate and strong). RR: 16 (regular, unlabored and normal). O2 saturation: 99%. Temp: 102.3 F (oral). Pain level now: 01/18. --21:30 Emily Buck R.N. Weight: 68 kg stated. Height/Length: 69 inches Per Patient. BMI: 22.2. --21:29 Emily Buck R.N. Medications Ibuprofen Oral (Tablet 600 mg) 1 tablet, PRN, fever, last dose 1930. --21:27 Emily Buck R.N. Amoxicillin Oral (Capsule 500 mg) 1 capsule, q8hrs, last dose 1400. --21:28 Emily Buck R.N. Allergies No Known Drug Allergy. --21:26 Emily Buck R.N. History Arrived by private vehicle. Historian: patient. Accompanied by friend. ( pounding headache, fever, nausea,). PAST MEDICAL HX: Immunizations: up-to-date. SOCIAL HX: Never smoker. No alcohol use or drug use. FALL RISK ASSESSMENT: Fall risk assessment completed. No fall risk identified. NUTRITIONAL RISK ASSESSMENT: The nutritional risk assessment revealed no deficiencies. FUNCTIONAL ASSESSMENT: Functional assessment: no impairments noted. LEARNING NEEDS ASSESSMENT: The learning needs assessment revealed no barriers. SKIN INTEGRITY ASSESSMENT: Skin integrity risk assessment completed. No skin integrity risk identified. --21:30 Emily Buck R.N. Interventions ID band on patient. --21:30 Emily Buck R.N. PHYSICAL ASSESSMENT ( Pt states having a generalized headache and fever "for a week" and having decreased appetite.). GENERAL / NEURO / PSYCH: Alert. Oriented X 4. HEENT: Mucous membranes are pink. RESPIRATORY: Respirations not labored. SKIN: Skin is warm and dry. --21:44 Gilbert Mcgraw R.N. Ambulatory to room. --21:45 Gilbert Mcgraw R.N. GENERAL / NEURO / PSYCH: Fátima Coma Scale: 15- eyes open spontaneously (4); best verbal response- oriented x 4 (5); best motor response- obeys commands (6). --21:45 Gilbert Mcgraw R.N. NURSING PROGRESS NOTES 21:39 10/14/2016 Tylenol (Acetaminophen) PO Tablets 650 mg given. Allergies verified and confirmed 5 rights. --21:39 Gilbert Mcgraw R.N. ( Patient resting in bed.). --21:43 Gilbert Mcgraw R.N. Two patient identifiers checked. Call light placed in reach. Side rails up x 1. Bed placed in lowest position. Brakes of bed on. Patient ready for evaluation- chart flagged. Patient waiting for evaluation. --21:43 Gilbert Mcgraw R.N. ( pt refused IV untill after he gets something to eat, states he will pass out if he does not eat first. Provider consulted and sandwich and crackers given to pt. Pt instructed to push call light when he is ready for IV start. Pt verbalizes understanding). --22:25 Mackenzie Abarca R.N. 22:30 10/14/2016 Site #1 started via IV in the left antecubital space with an 20g angiocath, with aseptic technique and good blood return; one attempt. Blood drawn: rainbow set. Labeled in the presence of the patient and sent to the lab. Saline lock flushed with 10 mL saline. --22:42 Mackenzie Abarca R.N. 22:31 10/14/2016 Started bag #1 1000 mL IV Fluids IV NS (Saline); at 1000 mL/hr over 1 hour(s) via site #1. Allergies verified and confirmed 5 rights. IV patency established. IV site checked: no pain, redness, or swelling. IV flushed thoroughly pre- and post-medication administration. --22:43 Mackenzie Abarca R.N. 22:34 10/14/2016 Toradol IVP 30 mg given over 1 minute(s) via site #1. Allergies verified and confirmed 5 rights. IV patency established. IV site checked: no pain, redness, or swelling. IV flushed thoroughly pre- and post-medication administration. IVP given by RN. --22:44 Mackenzie Abarca R.N. 22:35 10/14/2016 Benadryl (DiphenhydrAMINE HCl) IVP 25 mg given over 1 minute(s) via site #1. Allergies verified, confirmed 5 rights and sedative warning given to the patient. IV patency established. IV site checked: no pain, redness, or swelling. IV flushed thoroughly pre- and post-medication administration. IVP given by RN. --22:44 Mackenzie Abarca R.N. 22:37 10/14/2016 Reglan (Metoclopramide HCl) IVP 10 mg given over 2 minute(s) via site #1. Allergies verified and confirmed 5 rights. IV patency established. IV site checked: no pain, redness, or swelling. IV flushed thoroughly pre- and post-medication administration. IVP given by RN. --22:45 Mackenzie Abarca R.N. Patient transported to [place] by stretcher with tech. ([id number]). --22:45 Mackenzie Abarca R.N. Patient returned from CT by stretcher with tech. ([id number]). --22:45 Mackenzie Abarca R.N. 23:31 10/14/2016 IV Fluids IV NS Discontinued: bag #1 infused. Total amount infused: 1000 mL. IV patency established. IV site checked: no pain, redness, or swelling. IV flushed thoroughly. --23:36 Gilbert Mcgraw R.N. 23:35 10/14/2016 IV Saline Lock Drip IV Discontinued: bag #1 upon discharge. IV patency established IV site checked: no pain, redness, or swelling IV flushed thoroughly. --23:35 Gilbert Mcgraw R.N. DISPOSITION / DISCHARGE Departure time: 23:37. Condition at departure: improved and stable. No learning barriers present. Discharge instructions provided and reviewed with student worker and the patient. Reviewed warnings. Treatments reviewed. Reviewed referrals. Patient and student worker verbalized understanding. Written instructions provided in Turkish. The patient was discharged home and accompanied by student worker. He left the Emergency Department ambulatory and via private vehicle. Fondant Cooker driving. ( Patient states "my headache is better, it's gone."). --23:38 Gilbert Mcgraw R.N. 23:36 10/14/16. BP: 114/60. HR: 79. RR: 18. O2 saturation: 95% on room air. Temp: 98.6 F (oral). Pain level now: 0/10. --23:38 Gilbert Mcgraw R.N. Locked/Released at 10/14/2016 23:39 by Gilbert Mcgraw R.N.
--- NOTE | 2016-10-15 13:20 | ED DISCHARGE INSTRUCTIONS ---
Patient: NINFA AUGUST General Instructions [facility] VisitID: [id number] [place] [address] 30y, M Registration Date/Time: 10/14/2016 Acute streptococcal pharyngitis Acute fever Episodic, poorly controlled headache. INSTRUCTIONS Alternate Tylenol (Acetaminophen) and Motrin (Ibuprofen) for fever, temperature greater than 101 degrees. Take according to label instructions. Drink plenty of fluids. (continue with current prescriptions as directed and discussed). Warnings: GENERAL WARNINGS: Return or contact your physician immediately if your condition worsens or changes unexpectedly, if not improving as expected, or if other problems arise. Specifically return if problem worsens. Follow-up: Follow up with your doctor in about three days even if well. Call for an appointment. Summary of care provided to patient and family. Understanding of the discharge instructions verbalized by patient. ADDITIONAL INFORMATION Febrile Illness, Uncertain Cause (Adult) You have a fever, but the cause is not certain. A fever is a natural reaction of the body to an illness such as infections due to a virus or bacteria. In most cases, the temperature itself is not harmful. It actually helps the body fight infections. A fever does not need to be treated unless you feel very uncomfortable. Sometimes a fever can be an early sign of a more serious infection. Therefore, you should watch for the signs listed below. Home Care: If signs and symptoms are severe, rest at home for the first 2-3 days. When you resume activity, don't let yourself get too tired. Stay away from cigarette smoke (yours and other peoples). You may use acetaminophen (Tylenol) or ibuprofen (Motrin, Advil) to control fever or pain, unless another medicine was prescribed. NOTE: If you have chronic liver or kidney disease or ever had a stomach ulcer or GI bleeding, talk with your doctor before using these medicines. (Aspirin should never be used in anyone under 18 years of age who is ill with a fever. It may cause severe liver damage.) Your appetite may be poor, so a light diet is fine. Avoid dehydration by drinking 6-8 glasses of fluid per day (water, sport drinks such as Gatorade, sodas without caffeine, juices, tea, soup). Extra fluid will help loosen secretions in the nose and lungs. Gffb-wir-hpeybfl products will not shorten the duration of the illness but may be helpful for the following symptoms: cough (Robitussin DM); sore throat (Chloraseptic lozenges or spray); nasal and sinus congestion (Actifed or Sudafed). NOTE: Do not use decongestants if you have high blood pressure. Follow Up with your doctor or as advised if you do not start to improve over the next week. Get Prompt Medical Attention if any of the following occur: Cough with lots of colored sputum (mucus) or blood in your sputum Chest pain, shortness of breath, wheezing or difficulty breathing Severe headache, face, neck, throat or ear pain Feeling drowsy or confused Abdominal pain, repeated vomiting or diarrhea Joint pain or a new rash Burning when urinating Fever of 100.4F (38C) oral or higher, not better with fever medication Feeling weak or dizzy Convulsion Taking Your Child's Temperature If your child feels hot, then check the temperature. Under 3 months : Start with a AXILLARY temperature. If it is above 99.0 F (37.2 C), take a RECTAL temperature. 3 months to 4 years : Measure a RECTAL temperature, or an EAR temperature. Over 4 years : Measure an ORAL temperature. Rectal Temperature is the most accurate. Ear temperature is not as accurate as a rectal or oral temperature, but is more convenient and can be used in the 3 month to 4 year old. Other methods such as plastic strips , forehead devices , and pacifier thermometers are even less accurate and they are not recommended. If you do not know how to use a thermometer, ask your nurse or pharmacist. Oral Method: Normal: 98.6 F (37.0 C). Range of normal: Up to 99.0 F (37.2 C). Recommended Age: Use this method for children older than 4 or 5 years of age, only if cooperative. 1) Wait at least 20 minutes after drinking or eating before taking an oral temperature. 2) Place the tip of a the thermometer under the child's tongue. 3) Have child close lips gently, without biting on the thermometer. 4) Keep under the tongue until the thermometer beeps. 5) Remove thermometer and read the temperature in the display. 6) Clean the thermometer with alcohol, or soap and water after each use. Axillary Method (UNDER THE ARM): Normal: 97.6 F (36.6 C) Range of Normal: Up to 98.6 F (37.0 C) Recommended Age: Use this method for children under 4 years of age or any uncooperative child. 1) Make sure armpit is dry and the child does not have clothing between arm and chest. 2) Place the tip of the thermometer high up in the armpit. 4) Hold the child's arm snug against their body with the thermometer in place until it beeps. 5) Remove thermometer and read the temperature in the display. 6) Clean the thermometer with alcohol, or soap and water after each use. Rectal Method: Normal: 99.6 F (37.6 C). Range of Normal: Up to 100.4 F (38.0 C). Recommended age: Use this method for children under 4 years of age or any uncooperative child. 1) Lubricate the tip of a rectal thermometer with a lubricant such as Vaseline jelly or K-Y jelly. 2) Lay your child face down across your lap, or on his/her side with knees bent toward the chest. Spread buttocks so that the anus can be easily seen. 3) Hold the thermometer between your thumb and index finger with the edge of your hand resting on the buttocks. Slowly and gently insert thermometer into the anus about one inch. The tip should slide in easily. Do not force it since they may cause injury. 4) Do not let go of the thermometer! Hold it carefully in place until it beeps. 5) Remove thermometer and read the temperature in the display. 6) Clean the thermometer with alcohol, or soap and water after each use. When To Seek Help Call your doctor or return here if you have an infant younger than 3 months with a temperature of 100.4 F (38.0 C) or an older child with a fever higher than 104.0 F (40.0 C). Pharyngitis: Strep [Presumed] Your illness has the signs of a strep throat infection. Strep throat is a contagious illness. It is spread by coughing, kissing or by touching others after touching your mouth or nose. Symptoms include throat pain worse with swallowing, aching all over, headache and fever. You will be treated with an antibiotic, which should make you start to feel better within 1-2 days. Home Care: Rest at home and drink plenty of fluids to avoid dehydration. No school or work for the first two days on antibiotics. You will not be contagious after this time, and if you are feeling better, you can return to school or work. Take your antibiotics for a full 10 days, even if you feel better after the first few days of treatment. This is very important to prevent complications from the strep infection (such as heart or kidney disease). Children: Use acetaminophen (Tylenol) for fever, fussiness or discomfort. In infants over six months of age, you may use ibuprofen (Children's Motrin) instead of Tylenol. [NOTE: If your child has chronic liver or kidney disease or ever had a stomach ulcer or GI bleeding, talk with your doctor before using these medicines.] (Aspirin should never be used in anyone under 18 years of age who is ill with a fever. It may cause severe liver damage.) Adults: You may use acetaminophen (Tylenol) or ibuprofen (Motrin, Advil) to control pain or fever, unless another medicine was prescribed for this. [NOTE: If you have chronic liver or kidney disease or ever had a stomach ulcer or GI bleeding, talk with your doctor before using these medicines.] Throat lozenges or sprays (Chloraseptic and others) will reduce pain. Gargling with warm salt water will also reduce throat pain. Dissolve 1/2 teaspoon of salt in 1 glass of warm water. This is especially useful just before meals. Follow Up with your doctor or as directed by our staff if you are not improving over the next week. Get Prompt Medical Attention if any of the following occur: Fever over 100.5F (38.0C) oral, or over 101.5F (38.6C) rectal for more than three days New or worsening ear pain, sinus pain or headache Painful lumps in the back of your neck Unable to swallow liquids or open your mouth wide due to throat pain Trouble breathing or noisy breathing Muffled voice New rash Headache [Unspecified] The cause of your headache today is not clear, but it does not appear to be the sign of any serious illness. Under stress, some people tense the muscles of their shoulder, neck and scalp without knowing it. If this condition lasts long enough, a TENSION HEADACHE can occur. A MIGRAINE HEADACHE is caused by changes in blood flow to the brain. A migraine attack may be triggered by emotional stress, hormone changes during the menstrual cycle, oral contraceptives, alcohol use, certain foods containing tyramine, eye strain, weather changes, missing meals, lack of sleep or oversleeping. Other causes of headache include a viral illness with high fever, head injury with concussion, sinus, ear or throat infection, dental pain and TMJ (jaw joint) pain. More serious but less common causes of headache include stroke, brain hemorrhage, brain tumor, meningitis and encephalitis. Home Care: If you were given pain medicine for this headache, do not drive yourself home. Arrange for a ride, instead. When you get home, try to sleep. You should feel much better when you wake up. Apply heat to the back of your neck to relieve neck muscle spasm. Migraine headaches may respond best to an ice pack on the forehead or at the base of the skull. If you are having nausea or vomiting, follow a light diet until your headache is relieved. If you have a migraine type headache, use sunglasses when in the daylight or around bright indoor lighting until symptoms improve. Bright glaring light can worsen this kind of headache. Follow Up with your doctor if the headache is not better within the next 24 hours. If you have frequent headaches you should discuss a treatment plan with your primary care doctor. By being aware of the earliest signs of headache, and starting treatment right away, you may be able to stop the pain yourself. Get Prompt Medical Attention if any of the following occur: Worsening of your head pain or no improvement within 24 hours Repeated vomiting (unable to keep liquids down) Fever of 100.4F (38C) or higher, or as directed by your healthcare provider Stiff neck Extreme drowsiness, confusion or fainting Dizziness, vertigo (dizziness with spinning sensation) Weakness of an arm or leg or one side of the face Difficulty with speech or vision Fever Control (Adult) A fever is a natural reaction of the body to an illness. In most cases, the temperature itself is not harmful. It actually helps the body fight infections. A fever does not need to be treated unless you feel very uncomfortable. Home Care If you feel warm, check your temperature. If you feel very uncomfortable and your temperature is at or higher than 100.4F (38C) oral, you may take acetaminophen (Tylenol) every 4 to 6 hours. If you cant take or keep down oral medicine, ask your pharmacist for Tylenol suppositories, which you can get without a prescription. If the fever does not respond to acetaminophen within 1 hour, take ibuprofen (Advil or Motrin). If this works, keep taking the ibuprofen every 6 to 8 hours. Note: If you have chronic liver or kidney disease or ever had a stomach ulcer or GI bleeding, talk with your doctor before using these medications. If either medication alone does not keep the fever down, you may alternate the two medicines every 3 to 4 hours, only if your healthcare provider has instructed you to do so. For example, take Motrin then wait 3 hours, take Tylenol then wait 3 hours, take Motrin, and so on. Follow your healthcare providers instructions exactly. Clothing: Keep clothing light because excess body heat is lost through the skin. The fever will go up if you wear extra layers or wrap in blankets. Fluids: Fever causes the body to lose water through evaporation. Drink plenty of fluids such as water, juice, clear sodas, janel kamilah, or lemonade. Do not use aspirin in anyone under 18 years of age who is ill with a fever. It can cause severe liver damage. Follow Up with your doctor or as advised by our staff if you do not get better after 48 hours. Get Prompt Medical Attention if any of the following occur: Fever does not get better after taking fever medication Fast or difficult breathing Earache, sinus pain, stiff or painful neck, headache, repeated diarrhea or vomiting You feel unusually irritable, drowsy, or confused A rash appears You feel weak or dizzy, or that you might faint You have been given the following additional information: Febrile Illness, Uncertain Cause (Adult) Thermometer Use Pharyngitis, Strep (Presumed) Headache, Unspecified Fever Control (Adult) (Electronically signed by Fabiana Rodriguez A.R.N.P. 10/15/2016 13:20)
--- NOTE | 2016-10-15 13:21 | ED MED RECONCILIATION SUMMARY ---
Patient: NINFA AUGUST Medication Reconciliation Report [facility] VisitID: [id number] [address] [place] [address] 30y, M Registration Date/Time: 10/14/2016 Weight: 68.0 kg Height/Length: 69 in. BMI: 22.2 ALLERGIES: No Known Drug Allergy The patient's Home Medications are listed below: THE FOLLOWING MEDICATIONS NEED TO BE RECONCILED: Amoxicillin Oral (500 mg) 1 capsule, q8hrs, last dose: 1400 Ibuprofen Oral (600 mg) 1 tablet, PRN, fever, last dose: 1930 The source(s) of the original Home Medication information: Not obtained. The following Medications were given to the patient in the Emergency Department: Tylenol [PO] PO 650 mg, administered: 10/14/2016 9:39:00 PM IV NS IV Fluids bolus 0, then 1000 mL/hr, administered: 10/14/2016 10:31:00 PM Toradol [IVP] IVP 30 mg, administered: 10/14/2016 10:34:00 PM Benadryl [IVP] IVP 25 mg, administered: 10/14/2016 10:35:00 PM Reglan [IVP] IVP 10 mg, administered: 10/14/2016 10:37:00 PM The following Medications were prescribed to the patient: None.
--- NOTE | 2016-10-15 13:21 | ED MED RECONCILIATION SUMMARY ---
Patient: NINFA AUGUST Medication Reconciliation Report [facility] VisitID: [id number] [address] [address] 30y, M Registration Date/Time: 10/14/2016 Weight: 68.0 kg Height/Length: 69 in. BMI: 22.2 ALLERGIES: No Known Drug Allergy The patient's Home Medications are listed below: THE FOLLOWING MEDICATIONS NEED TO BE RECONCILED: Amoxicillin Oral (500 mg) 1 capsule, q8hrs, last dose: 1400 Ibuprofen Oral (600 mg) 1 tablet, PRN, fever, last dose: 1930 The source(s) of the original Home Medication information: Not obtained. The following Medications were given to the patient in the Emergency Department: Tylenol [PO] PO 650 mg, administered: 10/14/2016 9:39:00 PM IV NS IV Fluids bolus 0, then 1000 mL/hr, administered: 10/14/2016 10:31:00 PM Toradol [IVP] IVP 30 mg, administered: 10/14/2016 10:34:00 PM Benadryl [IVP] IVP 25 mg, administered: 10/14/2016 10:35:00 PM Reglan [IVP] IVP 10 mg, administered: 10/14/2016 10:37:00 PM The following Medications were prescribed to the patient: None.
--- NOTE | 2016-10-15 13:21 | ED MAR SUMMARY ---
..... Medication Administration Record [facility] [address] [place] [address] Patient: NINFA AUGUST Visit ID: [id number] 30y, M Weight: 68.0 kg Height/Length: 69 in BMI: 22.2 ALLERGIES: No Known Drug Allergy Given 21:39 10/14/2016 Gilbert Mcgraw R.N. Medication Administered: TYLENOL [PO] (ACETAMINOPHEN), Dose: 650 mg Tablets PO. Medication Ordered: Tylenol PO 650 mg (NOW). Start 22:31 10/14/2016 Mackenzie Abarca R.N., Stop 23:31 10/14/2016 Gilbert Mcgraw R.N. Medication Administered: IV NS (SALINE), Dose: IV Fluids over 1 hour(s), Rate: 1000 mL/hr, Dispensed: 1000 mL bag, Site: #1 left AC. Medication Ordered: IV NS : initial bolus 1000 mL (1000 mL/hr), then none - (NOW). Given 22:34 10/14/2016 Mackenzie Abarca R.N. Medication Administered: TORADOL [IVP], Dose: 30 mg IVP over 1 minute(s), Site: #1 left AC. Medication Ordered: Toradol IV 30 mg (NOW). Given 22:35 10/14/2016 Mackenzie Abarca R.N. Medication Administered: BENADRYL [IVP] (DIPHENHYDRAMINE HCL), Dose: 25 mg IVP over 1 minute(s), Site: #1 left AC. Medication Ordered: Benadryl IV 25 mg (NOW). Given 22:37 10/14/2016 Mackenzie Abarca R.N. Medication Administered: REGLAN [IVP] (METOCLOPRAMIDE HCL), Dose: 10 mg IVP over 2 minute(s), Site: #1 left AC. Medication Ordered: Reglan IV 10 mg (NOW).
--- NOTE | 2016-10-15 13:21 | ED MAR SUMMARY ---
..... Medication Administration Record [facility] [address] [place] [address] Patient: NINFA AUGUST Visit ID: [id number] 30y, M Weight: 68.0 kg Height/Length: 69 in BMI: 22.2 ALLERGIES: No Known Drug Allergy Given 21:39 10/14/2016 Gilbert Mcgraw R.N. Medication Administered: TYLENOL [PO] (ACETAMINOPHEN), Dose: 650 mg Tablets PO. Medication Ordered: Tylenol PO 650 mg (NOW). Start 22:31 10/14/2016 Mackenzie Abarca R.N., Stop 23:31 10/14/2016 Gilbert Mcgraw R.N. Medication Administered: IV NS (SALINE), Dose: IV Fluids over 1 hour(s), Rate: 1000 mL/hr, Dispensed: 1000 mL bag, Site: #1 left AC. Medication Ordered: IV NS : initial bolus 1000 mL (1000 mL/hr), then none - (NOW). Given 22:34 10/14/2016 Mackenzie Abarca R.N. Medication Administered: TORADOL [IVP], Dose: 30 mg IVP over 1 minute(s), Site: #1 left AC. Medication Ordered: Toradol IV 30 mg (NOW). Given 22:35 10/14/2016 Mackenzie Abarca R.N. Medication Administered: BENADRYL [IVP] (DIPHENHYDRAMINE HCL), Dose: 25 mg IVP over 1 minute(s), Site: #1 left AC. Medication Ordered: Benadryl IV 25 mg (NOW). Given 22:37 10/14/2016 Mackenzie Abarca R.N. Medication Administered: REGLAN [IVP] (METOCLOPRAMIDE HCL), Dose: 10 mg IVP over 2 minute(s), Site: #1 left AC. Medication Ordered: Reglan IV 10 mg (NOW).
== END 2016-10-14 23:27 | disposition home or self-care (01) ==
LOC: ED SRH 20:50
DX: J02.0 Streptococcal pharyngitis (principal); R51 Headache
CPT/HCPCS: 90100; 93004; 95059; 98370